=== PATIENT | female | born 1950 | race Two or more races ===

== ENCOUNTER 2023-10-09 20:34 | Inpatient (IN) | payer OTHER ==
[~2023-10-09] VITALS: Ht 162.6 cm; Wt 58.5 kg
[2023-10-09] MEDS ORDERED: 0.9 % SODIUM CHLORIDE 1,000 ML IV SCH (21:05)
[2023-10-09 22:00] LABS: HEMATOCRIT 37.5 % (36.0-45.00); HEMOGLOBIN 12.4 g/dL (12.0-15.00); MEAN CORPUSCULAR HEMOGLOBIN 28.4 pg (27.00-32.0); PLATELET COUNT 369 K/uL (150-450); RED BLOOD COUNT 4.36 M/uL (4.00-6.00); RED CELL DISTRIBUTION WIDTH 15.4 % (11.5-14.5)
[2023-10-09 22:18] LABS: URINE APPEARANCE Clear; URINE BILIRRUBIN Negative (NEGATIVE); URINE BLOOD Negative; URINE COLOR Yellow; URINE KETONE 15 (NEGATIVE); URINE LEUKOCYTE Small; URINE NITRATE Negative; URINE PROTEIN Trace (NEGATIVE); URINE UROBILINOGEN 0.2 E.U./dl
[2023-10-09 22:19] LABS: URINE BACTERIA 139.8 uL (0.0-1933); URINE CAST 2.74 uL (0.0-1.40); URINE EPITHELIAL CELLS 15.7 uL (0.0-38.8); URINE RBC 5.4 uL (0.0-20.8); URINE WBC 49.1 uL (0.0-23.2)
[2023-10-09 22:21] LABS: ALBUMIN 3.4 gm/dL (3.4-5.0); BILIRUBIN TOTAL 0.52 mg/dL (0.3-1.2); CALCIUM 9.9 mg/dL (8.5-10.1); CREATININE SERUM 0.76 mg/dL (0.55-1.02); GFR 74.39; GLOBULINA 4.3 G/DL (2.4-3.5); POTASSIUM 3.09 mEq/L (3.5-5.1); TOTAL PROTEIN 7.7 gm/dL (6.4-8.2)
[2023-10-09 22:32] LABS: URINE GLUCOSE >=1000 MG/DL (NEGATIVE)
[2023-10-10] MEDS ORDERED: POTASSIUM CHLORIDE/NACL 0.9% 1,000 ML IV ONE (01:45)
[2023-10-10] MEDS ORDERED: LEVALBUTEROL HCL 0.63 MG/3 ML SOLUTION IH STA (01:47)
[2023-10-10] MEDS ORDERED: LEVALBUTEROL HCL 0.63 MG/3 ML SOLUTION IH SCH ×2 (01:47→13:00)
[2023-10-10] MEDS ORDERED: LEVALBUTEROL HCL 0.63 MG/3 ML SOLUTION IH ONE ×2 (02:11→11:29)
[2023-10-10] MEDS ORDERED: ONDANSETRON HCL 2 MG/ML VIAL IV ONE (09:00)
[2023-10-10] MEDS ORDERED: ONDANSETRON HCL 2 MG/ML VIAL ONE (09:00)
[2023-10-10] MEDS ORDERED: AZITHROMYCIN 500 MG in 0.9 % SODIUM CHLORIDE 250 ML IV SCH (12:36)
[2023-10-10] MEDS ORDERED: CEFTRIAXONE SODIUM 2,000 MG in DEXTROSE 5 % IN WATER 100 ML IV SCH (12:36)
[2023-10-10] MEDS ORDERED: 0.9 % SODIUM CHLORIDE 1,000 ML IV SCH (12:45)
[2023-10-10] MEDS ORDERED: INSULIN LISPRO 1,000 UNIT/10 ML UNITS SUBCUTANEO PRN (12:45)
[2023-10-10] MEDS ORDERED: DEXTROSE 50 % IN WATER 0.5 G/ML DISP.SYRIN IV PRN (12:45)
[2023-10-10] MEDS ORDERED: IPRATROPIUM BROMIDE 0.5 MG/2.5 ML AMPUL.NEB IH SCH (13:00)
[2023-10-10] MEDS ORDERED: BENZONATATE 100 MG CAPSULE PO SCH (13:00)
[2023-10-10] MEDS ORDERED: GUAIFENESIN/DEXTROMETHORPHAN 10ML BLIST.PACK PO SCH (13:00)
[2023-10-10 13:31] LABS: ABG PH 7.397 (7.35-7.45); ABG pCO2 49.4 mmHg (35-45); BASE EXCESS 3.8 mmol/l; BICARBONATE 29.7 mmol/l (23-25); SaO2 89.7 %; Tco2 31.2 mmol/l
[2023-10-10 13:59] LABS: ABG PO2 57.5 mmHg (80-100)
[2023-10-10 14:00] LABS: allen test SATISFACTORY; o2 21 %; puncture site RADIAL RIGHT
[2023-10-10 16:15] VITALS: BP 122/73; O2SAT 98
[2023-10-10] MEDS ORDERED: FAMOtidine 20 MG TABLET PO SCH (21:00)
[2023-10-10] MEDS ORDERED: LORATADINE 10 MG TABLET PO SCH (21:00)
[2023-10-10 22:23] VITALS: BP 156/68
[2023-10-11 01:31] VITALS: BP 154/72
[2023-10-11 07:20] VITALS: BP 126/63
[2023-10-11] MEDS ORDERED: ENOXAPARIN SODIUM 40 MG/0.4 ML SYRINGE SUBCUTANEO SCH (09:00)
[2023-10-11] MEDS ORDERED: LACTOBACILLUS ACIDOPHILUS 1 CAP CAP PO SCH (17:00)
[2023-10-11 20:41] VITALS: BP 143/63
[2023-10-11] MEDS ORDERED: GUAIFENESIN/DEXTROMETHORPHAN 10ML BLIST.PACK PO SCH (21:00)
[2023-10-12 02:36] VITALS: BP 138/65; O2SAT 98
[2023-10-12 06:50] LABS: HEMATOCRIT 27.6 % (36.0-45.00); MEAN CORPUSCULAR HGB CONC 33.4 g/dl (32.0-36.0); PLATELET COUNT 298 K/uL (150-450); RED BLOOD COUNT 3.21 M/uL (4.00-6.00); RED CELL DISTRIBUTION WIDTH 15.3 % (11.5-14.5)
[2023-10-12 07:04] LABS: HEMOGLOBIN 9.2 g/dL (12.0-15.00); MEAN CORPUSCULAR HEMOGLOBIN 28.6 pg (27.00-32.0)
[2023-10-12 07:13] LABS: CALCIUM 8.3 mg/dL (8.5-10.1); CREATININE SERUM 0.43 mg/dL (0.55-1.02); GFR 143.14; POTASSIUM 3.18 mEq/L (3.5-5.1)
[2023-10-12] MEDS ORDERED: DIPHENHYDRAMINE HCL 150 MG,MAG HYDROX/ALUMINUM HYD/SIMETH 60 ML,LIDOCAINE HCL 60 ML PO SCH (09:00)
[2023-10-12 09:07] VITALS: BP 154/87
[2023-10-12] MEDS ORDERED: CLOTRIMAZOLE 10 MG TROCHE MM SCH (17:00)
[2023-10-12 18:20] VITALS: BP 167/82
[2023-10-13 00:58] VITALS: BP 149/67; O2SAT 98
[2023-10-13] MEDS ORDERED: MAG HYDROX/ALUMINUM HYD/SIMETH 30 ML BLIST.PACK PO ONE ×2 (01:20→16:51)
[2023-10-13 09:37] VITALS: BP 164/78
[2023-10-13 17:48] VITALS: BP 167/73; O2SAT 98
[2023-10-14 00:25] VITALS: BP 155/70
[2023-10-14 05:03] LABS: HEMATOCRIT 30.8 % (36.0-45.00); HEMOGLOBIN 10.1 g/dL (12.0-15.00); MEAN CELL VOLUME 85.2 fL (80.00-100.00); MEAN CORPUSCULAR HEMOGLOBIN 27.9 pg (27.00-32.0); MEAN CORPUSCULAR HGB CONC 32.8 g/dl (32.0-36.0); RED BLOOD COUNT 3.61 M/uL (4.00-6.00); RED CELL DISTRIBUTION WIDTH 15.8 % (11.5-14.5)
[2023-10-14 05:08] LABS: ERYTHROCYTE SEDIMENTATION RATE > 130 mm/hr
[2023-10-14 05:54] LABS: PLATELET COUNT 296 K/uL (150-450)
[2023-10-14] MEDS ORDERED: MAG HYDROX/ALUMINUM HYD/SIMETH 30 ML BLIST.PACK PO ONE (08:39)
[2023-10-14 09:09] VITALS: BP 159/70
[2023-10-14 16:15] VITALS: BP 175/79; O2SAT 97
[2023-10-15 02:02] VITALS: BP 151/69
[2023-10-15] MEDS ORDERED: MAG HYDROX/ALUMINUM HYD/SIMETH 30 ML BLIST.PACK PO ONE (08:15)
[2023-10-15 09:02] VITALS: BP 139/71; O2SAT 94
[2023-10-15 17:45] VITALS: BP 160/81; O2SAT 96
[2023-10-16 02:43] VITALS: BP 189/89
[2023-10-16 03:30] VITALS: BP 90/62; O2SAT 96
[2023-10-16] MEDS ORDERED: ACETAMINOPHEN 500 MG GEL..CAP PO PRN (04:45)
[2023-10-16] MEDS ORDERED: ONDANSETRON HCL 2 MG/ML VIAL IV PRN (04:45)
[2023-10-16 05:03] LABS: ABG PH 7.415 (7.35-7.45); ABG PO2 93.5 mmHg (80-100); ABG pCO2 45.4 mmHg (35-45); BASE EXCESS 3.2 mmol/l; BICARBONATE 28.5 mmol/l (23-25); SaO2 97.4 %; Tco2 29.9 mmol/l
[2023-10-16 05:05] LABS: HEMATOCRIT 28.8 % (36.0-45.00); HEMOGLOBIN 9.5 g/dL (12.0-15.00); MEAN CELL VOLUME 85.7 fL (80.00-100.00); MEAN CORPUSCULAR HEMOGLOBIN 28.1 pg (27.00-32.0); MEAN CORPUSCULAR HGB CONC 32.9 g/dl (32.0-36.0); PLATELET COUNT 313 K/uL (150-450); RED BLOOD COUNT 3.36 M/uL (4.00-6.00); RED CELL DISTRIBUTION WIDTH 15.6 % (11.5-14.5)
[2023-10-16 05:25] LABS: CALCIUM 8.5 mg/dL (8.5-10.1); CREATININE SERUM 0.66 mg/dL (0.55-1.02); GFR 87.31
[2023-10-16 05:35] LABS: allen test SATISFACTORY; puncture site RADIAL RIGHT
[2023-10-16 05:36] LABS: o2 28 %
[2023-10-16 05:45] LABS: C-REACTIVE PROTEIN 2.81 MG/DL (0.00-0.29)
[2023-10-16 05:46] LABS: MAGNESIUM 1.3 mg/dL (1.8-2.4); PHOSPHOROUS 1.7 mg/dL (2.5-4.9); POTASSIUM 2.69 mEq/L (3.5-5.1)
[2023-10-16] MEDS ORDERED: MAGNESIUM SULFATE IN WATER 50 ML IV ONE (06:00)
[2023-10-16] MEDS ORDERED: LEVALBUTEROL HCL 0.63 MG/3 ML SOLUTION IH SCH (06:00)
[2023-10-16] MEDS ORDERED: POTASSIUM CHLORIDE 20MEQ/100ML H2O PB IV SCH (06:00)
[2023-10-16] MEDS ORDERED: POTASSIUM PHOS,M-BASIC-D-BASIC 3 MM/ML VIAL IV ONE (06:00)
[2023-10-18 09:11] LABS: CA 125 10.1 U/mL (0.0-38.1); CA 19-9 20 U/mL (0-35)
== END 2023-10-16 09:50 | disposition expired | DRG 194 ==
LOC: ER 20:34 → MEDI 10-10 12:54
PROVIDERS: Emergency Medicine; Internal Medicine; Internal Medicine Geriatric Medicine; Internal Medicine Infectious Disease; ADMIT Internal Medicine; ATTEND Internal Medicine
PROC: B020ZZZ Computerized Tomography (CT Scan) of Brain (ICD-10-PCS; principal; 2023-10-09)
PROC: BB24ZZZ Computerized Tomography (CT Scan) of Bilateral Lungs (ICD-10-PCS; 2023-10-10)
PROC: 3E0F7GC Introduction of Other Therapeutic Substance into Respiratory Tract, Via Natural or Artificial Opening (ICD-10-PCS; 2023-10-10)
PROC: B348ZZZ Ultrasonography of Bilateral Internal Carotid Arteries (ICD-10-PCS; 2023-10-11)
PROC: B345ZZZ Ultrasonography of Bilateral Common Carotid Arteries (ICD-10-PCS; 2023-10-11)
PROC: B246ZZZ Ultrasonography of Right and Left Heart (ICD-10-PCS; 2023-10-11)
PROC: B335ZZZ Magnetic Resonance Imaging (MRI) of Bilateral Common Carotid Arteries (ICD-10-PCS; 2023-10-11)
PROC: B338ZZZ Magnetic Resonance Imaging (MRI) of Bilateral Internal Carotid Arteries (ICD-10-PCS; 2023-10-11)
PROC: BW21YZZ Computerized Tomography (CT Scan) of Abdomen and Pelvis using Other Contrast (ICD-10-PCS; 2023-10-14)
PROC: BW2FZZZ Computerized Tomography (CT Scan) of Neck (ICD-10-PCS; 2023-10-14)
PROC: 02HV33Z Insertion of Infusion Device into Superior Vena Cava, Percutaneous Approach (ICD-10-PCS; 2023-10-15)
PROC: 0BH17EZ Insertion of Endotracheal Airway into Trachea, Via Natural or Artificial Opening (ICD-10-PCS; 2023-10-16)
DX: J18.0 Bronchopneumonia, unspecified organism (principal); B37.0 Candidal stomatitis; J98.11 Atelectasis; J20.9 Acute bronchitis, unspecified; R55 Syncope and collapse; R59.0 Localized enlarged lymph nodes; R13.19 Other dysphagia; I95.9 Hypotension, unspecified; E83.42 Hypomagnesemia; E87.6 Hypokalemia; R00.0 Tachycardia, unspecified; R49.0 Dysphonia; I10 Essential (primary) hypertension; E11.9 Type 2 diabetes mellitus without complications; Z79.84 Long term (current) use of oral hypoglycemic drugs
CPT/HCPCS: 70548